=== PATIENT | female | born 1990 | race Caucasian/White ===

== ENCOUNTER 2017-02-10 11:46 | Emergency (ER) | payer OTHER ==
--- NOTE | 2017-02-10 13:01 | RAD ---
RIGHT ANKLE 3 VIEWS: HISTORY: Fell in a hole earlier today. COMPARISON: Radiograph from 2011. FINDINGS: No acute fracture or malalignment. No lateral talar shift. There is mild bimalleolar edema. IMPRESSION: No acute fracture or malalignment. POS: MED
== END 2017-02-10 13:00 | disposition home or self-care (01) ==
LOC: MADERS 11:46
DX: S93.421A Sprain of deltoid ligament of right ankle, initial encounter (principal); Z87.442 Personal history of urinary calculi; W17.2XXA Fall into hole, initial encounter